=== PATIENT | female | born 1955 | race Caucasian/White ===

== ENCOUNTER 2018-04-14 09:10 | Inpatient (IN) | payer MEDICARE, OTHER ==
[~2018-04-14] VITALS: Ht 152.4 cm; Wt 151.1 kg
[~2018-04-14 09:10] MED LIST: ADVAIR 250-501 EACH INH; ASPIRIN EC325 MG PO; CALMAG THINS T1 EACH PO; CEPHALEXIN500 MG PO; CLARITIN10 MG PO; COUGH DROPS3.1 MG MM; CRANBERRY450 M2 PO; DEMADEX20 MG PO; DERMASEPTIN OI113 GM TOP; DULCOLAX10 MG PR; FLEET ENEMA133 ML PR; GLUCAGON EMERGEN1 MG INJ; GLUCOPHAGE500 MG PO; HYDRALAZINE HCL10 MG PO; IPRAT-ALBUT 0.5-3 ML INH; K-TAB ER20 MEQ PO; LIPITOR20 MG PO; MELATONIN10 M2 PO; MILK OF MA400 MG/5 M PO; MULTI VITAMIN1 EACH PO; NEURONTIN300 MG PO; NORCO 5-325 TA1 EACH PO; RISPERDAL3 MG PO; TRAZODONE HCL100 MG PO; TYLENOL325 MG PO; VITAMIN C500 M4 PO; VOLTAREN100 GM TOP; WELLBUTRIN SR150 MG PO; ZANTAC150 MG PO
--- NOTE | 2018-04-14 13:40 | NUR ---
62 year old female pateint ADMITTED TO CCU FOR ED UNDER DR. PEREZ WITH DX OF END STAGE COPD/CHF/RESP FAILURE. UPON ADMIT PT IS AWARE OF PERSON, PLACE AND TIME. WILL DRIFT OFF TO SLEEP EASILY THEN WAKE. IS ABLE TO ANSWER MOST QUESTIONS. ADMISSION PROCESS STATED.
--- NOTE | 2018-04-14 16:00 | NUR ---
ASSESSMENT DONE. REMIANS ON BIPAP. ABGS TO BE DRAWN. GIOVANNI PATENT YELLOW URINE WIH SEDIMENT.
--- NOTE | 2018-04-14 16:18 | NUR ---
ABG RESULTS, PH-7.37, PCO2-90.6, PO2-71, HCO3-50.9, SAT-94.4
--- NOTE | 2018-04-14 17:00 | NUR ---
ACCUCHECK-103. REMIANS OFF BIPAP. SAT VARIES 84-93. DENIES SHORTNESS OF BREATH.
--- NOTE | 2018-04-14 18:50 | NUR ---
SS ENEMA GIVEN WITH POOR RESULTS. REMIANS ON BEDPAN.
--- NOTE | 2018-04-14 18:53 | NUR ---
TOOK DINNER WELL.
--- NOTE | 2018-04-14 19:43 | NUR ---
dr. krishna updated on patient status and ENEMA RESULTS. THERAPEUTIC STRATEGY LEAD AWARE.
--- NOTE | 2018-04-14 20:24 | NUR ---
PT HAD MED FIRM FORMED STOOL ON BED CAMPOS. JENNA WELL. RESP ARE UNLABORED. PT IS ALERT AND INTERACTIVE.
--- NOTE | 2018-04-14 22:06 | NUR ---
WAS ON BEDPAN, NO BM BUT IS PASSING GAS. HAS BEEN ON BIPAP NOW FOR ABOUT 20MIN. PT TOLD SHE NEEDS TO WEAR IT MUCH POSSABLE TONIGHT.
--- NOTE | 2018-04-14 22:29 | NUR ---
IS SLEEPING SOUNDLY, NOTED SATS DECREASED TO [address] WATCHED PT SLEEP AND TV WILL BE IN 200'S THEN PT WILL TAKE DEEP BREATH AND TV WILL INC TO 500'S AND SATS INC. RT CALLED.
--- NOTE | 2018-04-14 23:28 | NUR ---
AWAKE, STATES CHEST WAS HURTING AND TAKING BIPAP OFF. CHEST DISCOMFORT RESOVLED AFTER BIPAP OFF. FELL BACK TO SLEEP BEFORE STAFF LEFT ROOM. IS OFF BIPAP FOR NOW.
--- NOTE | 2018-04-15 00:35 | NUR ---
RT HERE AND PT PLACED BACK ON BIPAP. PRESSURES ADJUSTED.
--- NOTE | 2018-04-15 01:24 | NUR ---
OFF BIPAP IT WAS TOO NOISY AND CONFINING. BACK ON NC.
--- NOTE | 2018-04-15 02:32 | NUR ---
IS SLEEPING AT THIS TIME. DISCUSSED WITH RT WILL ALLOW TO SLEEP OFF BIPAP FOR UNTIL 0300.
--- NOTE | 2018-04-15 02:48 | NUR ---
STATES NOT SLEEPING AND "I USUALLY TAKE A SLEEPING PILL." EXPLAINED WOULD NOT BE GIVEN ANYTHING TO SLEEP POSSIBLITY OF RESP DEPRESSION. PT VOLUNTERED TO GO BACK ON BIPAP "I MIGHT GO BACK TO SLEEP" BIPAP IN PLACE.
--- NOTE | 2018-04-15 05:23 | NUR ---
OFF BIPAP, REPOSITIONED. PT DOES NOT THING SHE SLEPT. IS ASKING ABOUT BREAKFAST.
--- NOTE | 2018-04-15 05:43 | NUR ---
GIVEN TYLENOL FOR C/O SHOULDER PAIN.
--- NOTE | 2018-04-15 06:36 | NUR ---
ABG'S DRAWN 0615, BACK TO SLEEP.
--- NOTE | 2018-04-15 08:55 | NUR ---
PT SHIFT REPORT RECEIVED FROM BILL CLERK RN. PT RESTING IN BED AT THIS TIME. WILL CONTINUE TO CLOSELY MONITOR.
--- NOTE | 2018-04-15 10:00 | NUR ---
PT ON THE BEDPAN SEVERAL TIMES THIS AM. PT STATES SHE FEELS LIKE SHE HAS TO HAVE A BM, BUT IT WONT COME OUT. MD IS AWARE. WILL TRY AND GET PT UP TO THE [facility]. PT IS UNABLE TO MOVE SO WILL HAVE TO RAMAN PATIENT TO [facility].
--- NOTE | 2018-04-15 12:00 | NUR ---
PT UP TO CHAIR WITH RAMAN AND MULTIPLE STAFF MEMBERS. PT TOELRATED WELL. WILL CONTINUE TO CLOSELY MONITOR. PT BED CHANGED TO BARIATIC BED. LUNCH ORDERED. NO OTHER ISSUES AT THIS TIME. WILL CONTINUE TO CLOSELY MONITOR.
--- NOTE | 2018-04-15 14:00 | NUR ---
PT REPOSITIONED IN THE CHAIR WITH RAMAN LIFT AND MULTIPLE STAFF MEMBERS. PT TOLERATED WELL. WILL CONTINUE TO CLOSELY MONITOR.
--- NOTE | 2018-04-15 15:30 | NUR ---
PT BACK TO BED WITH RAMAN AND MULTIPLE STAFF MEMBERS. ONCE IN BED PT REQUESTING BEDPAN. BED PLAN PLACED. WILL CONTINUE TO CLOSELY MONITOR. PT CALLS APPROPRIATELY.
--- NOTE | 2018-04-15 16:23 | NUR ---
PT HAS HAD MULTIPLE LARGE BMS TODAY. PT IS BACK IN BED AT THIS TIME. PT DENIES ANY NEEDS. CALL LIGHT IN REACH. TV ON. PT IS LOOKING AT THE MENU FOR DINNER. WILL CONTINUE TO CLSOELY MONITOR.
--- NOTE | 2018-04-15 17:30 | NUR ---
REPORT GIVEN TO [facility] MANAV [place]. UPDATED REGUARDING PTS STATUS. PT REMAINS ON 4L NC AT THIS ITME. PT IS ALERT AND ORIENTED AND HAS BEEN UP TO THE CHAIR TODAY AND TOLERATED WELL. TAM IS DRAINING CLEAR YELLOW URINE. PT BREATH SOUNDS ARE CLEAR AND DIMINISHED AT THIS TIME. PT DINNER ORDERED. MEDICATIONS ADMINISTERED. PT DENIES ANY NEEDS BEFORE TRANSFER. MANAV MIDDLETON WILL RESUME CARE. PT IS AGREEABLE TO THIS PLAN OF CARE.
--- NOTE | 2018-04-15 18:00 | NUR ---
ASSESSMENT DONE. MEDICATION GIVEN (SEE MAR). pt DENIES SOB AT THIS TIME. ON 4 L O2 VIA NC. LAYING IN BED WATCHING TV. CALL LIGHT WITHIN REACH.
--- NOTE | 2018-04-15 18:47 | NUR ---
PATIENT IN BED WATCHING TV. VITAL SIGNS AND I&O DONE. CALL LIGHT WITHIN REACH. NO OTHER NEEDS AT THIS TIME
--- NOTE | 2018-04-15 18:48 | NUR ---
pt ARRIVED FROM CCU. ON 4 L VIA NC CHRONICLY. DAILY WEIGHT. BLOOD SUGAR CHECKS ACHS. MULTIPLE LARGE BMS. TAM CATHETER. IV SL. TOLERATING ADA DIET. SLEEP APNEA. HAS NOT USED CALL LIGHT.
--- NOTE | 2018-04-15 19:36 | NUR ---
MEDICATED WITH TYLENOL 650MG PO C/O H/A AND R HIP PAIN. COOPERATIVE WITH ASSESSMENT. O2 4LNC, CHRONIC 2-4L AT HOME. NO C/O SOB, BIPAP AT BEDSIDE AT THIS TIME, PT HAS A NEWLY DX SLEEP APNEA. IN BARIATRIC BED. PT IS A RAMAN LIFT AND DAILY WEIGHT LAST WEIGHT 319#. PT STATES SHE USES BSC. LEGS WITH OLD STASIS ULCERS IN DIFFERENT STAGES OF HEALING. HAS AN IV FIELD START TO BE CHANGED. PT AWARE. TOLERATING FLUIDS AND DIET WELL.
--- NOTE | 2018-04-15 20:38 | NUR ---
ROUNDED CHARGE. ASSISTED HEMANT SULTANA WITH ASSISTING PATIENT OFF OF BED CAMPOS. PATIENT WAS ABLE TO HAVE A BM. COREY CARE COMPLETED. KAYY PROVIDED PT WITH WARM BLANKET. NO FURTHER NEEDS CALL LIGHT IN REACH.
--- NOTE | 2018-04-16 00:52 | EKG ---
[facility] [address] [facility] [place] [address] Signed Normal sinus rhythm Low voltage QRS Borderline ECG When compared with ECG of 24-FEB-2018 20:47, No significant change was found Confirmed by RAINER PEREZ MD ([id number]) on 04/16/2018 12:51:51 AM Electronically Signed By: RAINER PEREZ MD 04/16/18 0052 PATIENT NAME: MOE RICHARDSON Electrocardiogram DATE OF : 57 PHYSICIAN: RAINER PEREZ MD REPORT #: [id number] REPORT IS CONFIDENTIAL AND NOT TO BE RELEASED WITHOUT AUTHORIZATION
--- NOTE | 2018-04-16 01:39 | NUR ---
PATIENT CALLED AND REQUEST TO BE TAKEN OF BIPAP. ENCOURAGED AND EDUCATED PATIENT ON THE IMPORTANCE OF WEARING IT. PATIENT VERBALIZES UNDERSTANDING AND STILL WISHES TO BE TAKEN OFF OF IT. NO FURTHER NEEDS NOTED. CALL LIGHT IN REACH.
--- NOTE | 2018-04-16 03:18 | NUR ---
Resting, O2 in place, eyes closed, no resp distress, no c/o pain, f/c patent
--- NOTE | 2018-04-16 04:00 | NUR ---
awake, fresh ice water given on requests, no c/o pain, on 4L O2 NC, f/c patent
--- NOTE | 2018-04-16 06:19 | NUR ---
PT HAS SLEPT THIS SHIFT. CURRENTLY AWAKE, WATCHING TV. NO C/O PAIN OR SOB. O2 4LNC, USED BIPAP FOR SEVERAL HOURS THIS SHIFT. PT IN BARIATRIC BED. DAILY WEIGHT 333.1#. PT IS A RAMAN LIFT. USED BEDPAN AND HAD A LARGE SOFT BM THIS SHIFT. F/C PATENT. PT HELPS WITH TURNING. NO N/V
--- NOTE | 2018-04-16 06:46 | NUR ---
DI STAFF HERE TO DO A CXR, PROCEDURE EXPLAINED, PT COOPERATIVE
--- NOTE | 2018-04-16 08:13 | NUR ---
REPORT RECEIVED THIS AM FROM CARLOS EM, PATIENT IS SITTING UP IN A BARIATRIC BED WITH RAILS UP AND CALL LIGHT WITHIN REACH, BED IS IN THE LOW POSITION. SHE HAS NO QUESTIONS OR CONCERNS AT THIS TIME AND IS ALERT AND ORIENTED. PATIENT PLACED ON A BED CAMPOS BY TUBE CUTTER'S X2.
--- NOTE | 2018-04-16 11:16 | NUR ---
patient remains at rest in bed with cover over her eyes, blood sugar check at this time 93 no insulin coverage needed.
--- NOTE | 2018-04-16 11:28 | NUR ---
DOCTOR ANA IN TO SEE THE PATIENT AT THIS TIME, PATIENT TAM REMOVED AT THIS TIME, SHE WAS MOVED UP IN BED AND PO K GIVEN NOW.
[2018-04-16] MEDS ORDERED: NORCO 5-325 TA1 EACH PO (11:40)
[2018-04-16] MEDS ORDERED: DEMADEX20 MG PO (11:41)
--- NOTE | 2018-04-16 15:08 | NUR ---
PATIENT TX TO [facility] VIA AMBULANCE AT THIS TIME, REPORT CALLED TO FACILITY
== END 2018-04-16 15:00 | DRG 291 ==
LOC: ED 09:10 → CCU 12:54 → MS 04-15 17:40
PROVIDERS: ADMIT Internal Medicine
DX: I11.0 Hypertensive heart disease with heart failure (principal); J96.22 Acute and chronic respiratory failure with hypercapnia; J96.21 Acute and chronic respiratory failure with hypoxia; I50.33 Acute on chronic diastolic (congestive) heart failure; K59.00 Constipation, unspecified; J44.9 Chronic obstructive pulmonary disease, unspecified; E11.9 Type 2 diabetes mellitus without complications; Z79.4 Long term (current) use of insulin; E78.5 Hyperlipidemia, unspecified; K21.9 Gastro-esophageal reflux disease without esophagitis; F39 Unspecified mood [affective] disorder; Z66 Do not resuscitate; E66.01 Morbid (severe) obesity due to excess calories
CPT/HCPCS: 36415; 36600; 51702; 71045; 80048; 80053; 80069; 81001; 82803; 83735; 83880; 84484; 85025; 85379; 87077; 87088; 87186; 93005; 93010; 93306; 94640; 94660; 96374; 96375; 99285-25; J1120; J1650

== ENCOUNTER 2018-04-26 15:20 | Emergency (ER) | payer MEDICARE, OTHER ==
[~2018-04-26] VITALS: Ht 152.4 cm; Wt 147.9 kg
--- OUTSIDE RECORDS SUMMARY | 2018-04-26 15:24 | XMS ---
PreManage Notification: MOE RICHARDSON Security Store Administrative Assistant Events No recent Security Events currently on file CRITERIA MET - [facility] - 2 Visits in 30 Days CARE PROVIDERS Emily Lo Bioinformatics Technician/Drop Crew Laborer 04/07/2014-Current PHONE: [phone] Emily Lo Primary Care 04/07/2014-Current PHONE: [phone] Evelyn has no Care Guidelines for this patient. [place] VISIT COUNT (12 MO.) [address] [place] [address] TOTAL 3 NOTE: Visits indicate total known visits. ED/UCC VISIT TRACKING (12 MO.) 04/26/2018 15:20 [facility] TYPE: Emergency COMPLAINT: - CHEST PAIN 04/14/2018 09:11 [facility] TYPE: Emergency COMPLAINT: - WEAKNESS/DIZZY 02/24/2018 20:02 [facility] TYPE: Emergency COMPLAINT: - SHORTNESS OF BREATH INPATIENT VISIT TRACKING (12 MO.) 04/14/2018 12:54 [facility] TYPE: Medical Surgical COMPLAINT: - RESPIRATORY FAILURE DIAGNOSES: - Unspecified mood [affective] disorder - MCFP (current) use of insulin - Gastro-esophageal reflux disease without esophagitis - Do not resuscitate - Morbid (severe) obesity due to excess calories - Type 2 diabetes mellitus without complications - Hypertensive heart disease with heart failure - Acute on chronic diastolic (congestive) heart failure - Constipation, unspecified - terminal operations supervisor (current) use of insulin - Chronic obstructive pulmonary disease, unspecified - Gastro-esophageal reflux disease without esophagitis - Constipation, unspecified - Do not resuscitate - Acute and chronic respiratory failure with hypercapnia - Acute on chronic diastolic (congestive) heart failure - Morbid (severe) obesity due to excess calories - Chronic obstructive pulmonary disease, unspecified - Unspecified mood [affective] disorder - Acute and chronic respiratory failure with hypercapnia - Acute and chronic respiratory failure with hypoxia - Type 2 diabetes mellitus without complications - Hyperlipidemia, unspecified - Hyperlipidemia, unspecified - Hypertensive heart disease with heart failure 02/24/2018 22:23 [facility] TYPE: Medical Surgical COMPLAINT: - CONGESTIVE HEART FAILURE DIAGNOSES: - MCFP (current) use of oral hypoglycemic drugs - Pneumonia due to Streptococcus pneumoniae - Acute and chronic respiratory failure with hypercapnia - Unspecified mood [affective] disorder - terminal operations supervisor (current) use of oral hypoglycemic drugs - Hypertensive heart disease with heart failure - Acute and chronic respiratory failure with hypoxia - Unspecified Escherichia coli [E. coli] as the cause of diseases classified elsewhere - Hypertensive heart disease with heart failure - Chronic obstructive pulmonary disease with acute lower respiratory infection - Acute and chronic respiratory failure with hypercapnia - Unspecified mood [affective] disorder - Do not resuscitate - Pneumonia due to Streptococcus pneumoniae - Unspecified Escherichia coli [E. coli] as the cause of diseases classified elsewhere - Urinary tract infection, site not specified - Obstructive sleep apnea (adult) (pediatric) - Obstructive sleep apnea (adult) (pediatric) - Gastro-esophageal reflux disease without esophagitis - Urinary tract infection, site not specified - Gastro-esophageal reflux disease without esophagitis - Acute and chronic respiratory failure with hypoxia - Dependence on supplemental oxygen - Do not resuscitate - Acute on chronic diastolic (congestive) heart failure - Chronic obstructive pulmonary disease with acute lower respiratory infection - Hyperlipidemia, unspecified - Type 2 diabetes mellitus without complications - terminal operations supervisor (current) use of insulin - Chronic obstructive pulmonary disease, unspecified - Dependence on supplemental oxygen - Hyperlipidemia, unspecified - Type 2 diabetes mellitus without complications [email or web address]
[2018-04-26] MEDS ORDERED: MACROBID 100 M100 MG PO (17:25)
[2018-04-26] MEDS ORDERED: VITAMIN C500 M1 PO (17:26)
[2018-04-26] MEDS ORDERED: ADVAIR 250-501 EACH INH (17:27)
--- NOTE | 2018-04-27 12:17 | EKG ---
[facility] [address] [facility] [place] [address] Signed Normal sinus rhythm with sinus arrhythmia Low voltage QRS Borderline ECG When compared with ECG of 14-APR-2018 09:30, No significant change was found Confirmed by BHANU LO DO ([id number]) on 04/27/2018 12:17:03 PM Electronically Signed By: BHANU LO DO 04/27/18 1217 PATIENT NAME: MOE RICHARDSON Electrocardiogram DATE OF : 57 PHYSICIAN: BHANU LO DO REPORT #: [id number] REPORT IS CONFIDENTIAL AND NOT TO BE RELEASED WITHOUT AUTHORIZATION
--- NOTE | 2018-04-27 12:17 | EKG ---
[facility] [address] [facility] [place], [place] [address] Signed Normal sinus rhythm Low voltage QRS Borderline ECG When compared with ECG of 26-APR-2018 15:26, (Unconfirmed) No significant change was found Confirmed by BHANU LO DO ([id number]) on 04/27/2018 12:17:09 PM Electronically Signed By: BHANU LO DO 04/27/18 1217 PATIENT NAME: MOE RICHARDSON Electrocardiogram DATE OF : 57 PHYSICIAN: BHANU LO DO REPORT #: [id number] REPORT IS CONFIDENTIAL AND NOT TO BE RELEASED WITHOUT AUTHORIZATION
== END 2018-04-26 19:40 | disposition home or self-care (01) ==
LOC: ED 15:20
DX: R07.2 Precordial pain (principal); J44.9 Chronic obstructive pulmonary disease, unspecified; E78.5 Hyperlipidemia, unspecified; F32.9 Major depressive disorder, single episode, unspecified; Z87.891 Personal history of nicotine dependence; Z88.2 Allergy status to sulfonamides; Z91.048 Other nonmedicinal substance allergy status; Z88.1 Allergy status to other antibiotic agents; Z88.5 Allergy status to narcotic agent; Z79.899 Other long term (current) drug therapy
CPT/HCPCS: 71045; 71260; 80053; 84484; 85025; 85379; 93005; 93010; 99285-25; Q9967

== ENCOUNTER 2018-05-03 12:48 | Observation (INO) | payer MEDICARE, OTHER ==
[~2018-05-03] VITALS: Ht 152.4 cm; Wt 153.3 kg
[~2018-05-03 12:48] MED LIST changes: +MACROBID 100 M100 MG PO; +VITAMIN C500 M1 PO
--- OUTSIDE RECORDS SUMMARY | 2018-05-03 12:50 | XMS ---
PreManage Notification: MOE RICHARDSON Security Fiscal Clerk Events No recent Security Events currently on file CRITERIA MET - [facility] - 2 Visits in 30 Days CARE PROVIDERS Emily Lo Staff Nurse Anesthetist/Chief Clerk 04/07/2014-Current PHONE: [phone] TINA SMITH [facility] Medicine: Sports Medicine 04/27/2018-Current PHONE: Unknown Emily Lo Primary Care 04/07/2014-Current PHONE: [phone] Evelyn has no Care Guidelines for this patient. E.D. VISIT COUNT (12 MO.) 4 [facility] TOTAL 4 NOTE: Visits indicate total known visits. ED/UCC VISIT TRACKING (12 MO.) 05/03/2018 12:48 [facility] TYPE: Emergency COMPLAINT: - CHEST PAIN 04/26/2018 15:20 [facility] TYPE: Emergency COMPLAINT: - CHEST PAIN DIAGNOSES: - Chronic obstructive pulmonary disease, unspecified - Allergy status to narcotic agent status - Other nonmedicinal substance allergy status - Hyperlipidemia, unspecified - Other mcfp (current) drug therapy - Allergy status to other antibiotic agents status - Precordial pain - Allergy status to sulfonamides status - Major depressive disorder, single episode, unspecified - Personal history of nicotine dependence 04/14/2018 09:11 [facility] TYPE: Emergency COMPLAINT: - WEAKNESS/DIZZY 02/24/2018 20:02 [facility] TYPE: Emergency COMPLAINT: - SHORTNESS OF BREATH INPATIENT VISIT TRACKING (12 MO.) 04/14/2018 12:54 [facility] TYPE: Medical Surgical COMPLAINT: - RESPIRATORY FAILURE DIAGNOSES: - Unspecified mood [affective] disorder - FCI (current) use of insulin - Gastro-esophageal reflux disease without esophagitis - Do not resuscitate - Morbid (severe) obesity due to excess calories - Type 2 diabetes mellitus without complications - Hypertensive heart disease with heart failure - Acute on chronic diastolic (congestive) heart failure - Constipation, unspecified - lion trainer (current) use of insulin - Chronic obstructive [...] disease with heart failure 02/24/2018 22:[address] [facility] [place] TYPE: Medical Surgical COMPLAINT: - CONGESTIVE HEART FAILURE DIAGNOSES: - lion trainer (current) use of oral hypoglycemic drugs - Pneumonia due to Streptococcus pneumoniae - Acute and chronic respiratory failure with hypercapnia - Unspecified mood [affective] disorder - FCI (current) use of oral hypoglycemic drugs - [...] Type 2 diabetes mellitus without complications - lion trainer (current) use of insulin - Chronic obstructive pulmonary disease, unspecified - Dependence on supplemental oxygen - Hyperlipidemia, unspecified - Type 2 diabetes mellitus without complications [email or web address]
--- NOTE | 2018-05-03 16:05 | NUR ---
PT TO THE CCU FROM ER, RESP THERAPY WITH PT TRANSPORT TO ASSIST WITH BIPAP. PT IS TOTAL LIFT FROM GURNEY TO BED, USED OVERHEAD LIFT WITH PT'S OWN SLING FROM HOME, 3 PERSON ASSIST TO TRANSFER. PT DROWSY.
--- NOTE | 2018-05-03 16:35 | NUR ---
PT OFF BIPAP AT THIS TIME PER HER REQUEST, PT PLACED ON 7L VIA OXYMASK, O2 SATS REMAIN 89-92%.
--- NOTE | 2018-05-03 17:15 | NUR ---
TAM CATH PLACED AFTER EXTENSIVE COREY CARE DONE. PT ARRIVED TO THE CCU INCONTINENT OF LARGE AMOUNT OF URINE, SMEAR OF STOOL. NOTED SMALL AMOUNT OF WHITE VAGINAL DISCHARGE. [address] TAM DUE TO PT OBESITY.
--- NOTE | 2018-05-03 18:07 | NUR ---
BIPAP BACK IN PLACE PER PT REQUEST. PT ALERT AND ORIENTED X4 AT THIS TIME. PT LAYING IN BED WITH HOB ELEVATED LISTENING TO MUSIC. PT APPEARS CALM, CALL LIGHT WITHIN REACH, PT ABLE TO USE CALL LIGHT APPRORIATLY.
--- NOTE | 2018-05-03 20:17 | NUR ---
PT RESTING IN BED, AOX4, PT COMMUNICATING WITH STAFF, ON BIPAP, O2 SAT 90%, FIO2: 50%, RR 19, HR 70'S VSS. ASSESSMENT COMPLETE, LS CLEAR/DIMINISHED, PT DENIES SOB/CP. PULSES STRONG, REDDENED SCALY AREA NOTED ON PT'S RIGHT KIM, PT STATES THAT SHE HAS SOME CHRONIC NUMBNESS IN LEFT FOOT, CMS OTHERWISE INTACT. PT REPOSITIONED IN BED FOR COMFORT. CBG 78, DISCUSSED WITH MANAV RAY, MANAV RAY TO DISCUSS WITH MD. WILL CONTINUE TO MONITOR. CALL LIGHT WITHIN REACH. FALL PRECAUTIONS IN PLACE. TAM CATH DRAINING WNL.
--- NOTE | 2018-05-03 20:30 | NUR ---
PT AWAKE, RESTING IN BED, AOX4, PT REQUESTING TO BE OFF OF BIPAP BREIFLY, PT ON OXY MASK AT 8L, O2 SAT 90%, RR 19, NO C/O SOB/CP. NO REQUESTS AT THIS TIME, CALL LIGHT WITHIN REACH.
--- NOTE | 2018-05-03 20:42 | NUR ---
PT BACK ON BIPAP, D5 LR STARTED AT 75ML/HR, PT AWAKE, RESTING IN BED, AOX4, O2 SAT 89%, RR, 21, FIO2 50%, NO C/O SOB/CP. NO REQUESTS AT THIS TIME. CALL LIGHT WITHIN REACH.
--- NOTE | 2018-05-03 21:19 | NUR ---
PT RESTING IN BED, EYES CLOSED, BREATHS EVEN, UNLABORED, ON BIPAP, FIO2: 50%, O2 SAT 89%, RR 18, HR 69, NO SIGNS OF DISCOMFORT OR RESTLESNESS, IV FLUIDS INFUSING PER EMAR WNL, TAM CATH DRAINING WNL. NO REQUESTS AT THIS TIME, CALL LIGHT WIHIN REACH, FALL PRECAUTIONS IN PLACE, PT'S BELONGINGS AT BEDSIDE.
--- NOTE | 2018-05-03 22:17 | NUR ---
PT RESTING IN BED, EYES CLOSED, BREATHS EVEN, UNLABORED, ON BIPAP, FIO2: 50%, O2 SAT 90%, RR 16, HR 71, NO REQUESTS AT THIS TIME, NO SIGNS OF DISCOMFORT OR RESTLESNESS, IV FLUIDS INFUSING PER EMAR WNL, TAM CATH DRAINING WNL, CALL LIGHT WITHIN REACH.
--- NOTE | 2018-05-03 22:44 | NUR ---
PT AWAKE, AOX4, RESTING IN BED, PT STATES THAT SHE WOULD LIKE TO BE OFF OF BIPAP FOR A BRIEF PERIOD. PT ON OXY MASK AT 8L, O2 SAT 90%, RR 20, NO C/O SOB, HR 72, NO REQUESTS AT THIS TIME, CALL LIGHT WITHIN REACH. IV FLUIDS INFUSING PER EMAR WNL, PT REPOSITIONED FOR COMFORT, TAM CATH DRAINING WNL.
--- NOTE | 2018-05-04 | NUR ---
PT AWAKE, RT IN ROOM, PT'S MOUTH SWABBED PER PT'S REQUEST, PT TAKING A BREAK FROM BIPAP WHILE RT IN ROOM ADMINISTERING NEB TREATMENT. PT ON OXY MASK AT 8L, O2 SAT 90%, RR 20, NO REQUESTS AT THIS TIME, RT REMAINS IN ROOM, CALL LIGHT WITHIN REACH.
--- NOTE | 2018-05-04 00:20 | NUR ---
PT PLACED BACK ON BIPAP, FIO2: 50%, O2 SAT 90%, HR 72, NO REQUESTS AT THIS TIME, CALL LIGHT WITHIN REACH. IV FLUIDS INFUSING PER EMAR WNL.
--- NOTE | 2018-05-04 00:55 | NUR ---
ASSESSMENT COMPLETE, PT RESTING IN BED, AOX4, ON BIPAP, FIO2: 50%, O2 SAT 89%, RR 18, NO C/O SOB, NO C/O PAIN. PT REPOSITIONED IN BED FOR COMFORT. TAM CARE DONE, WHITE VAGINAL DISCHARGE NOTED, PT'S ATTENDS DRY. TAM CATH DRAINING WNL. PT DENIES ANY NEEDS AT THIS TIME. PT MORE ALERT THAN PREVIOUS, FREQUENTLY TALKING WITH STAFF, EDUCATION PROVIDED REGARDING O2 THERAPY AND MEDICATIONS, WELL SAFETY. PT COMPLIANT WITH POC. NO REQUESTS AT THIS TIME, CALL LIGHT WITHIN REACH. FALL PRECAUTIONS IN PLACE.
--- NOTE | 2018-05-04 02:00 | NUR ---
PT RESTING IN BED, ON BIPAP, FIO2 50%, O2 SAT 90%, RR 19, HR 69, NO REQUESTS AT THIS TIME, CALL LIGHT WITHIN REACH. IV FLUIDS INFUSING PER EMAR WNL. TAM CATH DRAINING WNL.
--- NOTE | 2018-05-04 03:11 | NUR ---
PT RESTING IN BED, ON BIPAP, FIO2 50%, O2 SAT 90%, NO REQUESTS AT THIS TIME, CALL LIGHT WITHIN REACH. IV FLUIDS INFUSING PER EMAR.
--- NOTE | 2018-05-04 03:40 | NUR ---
PT AWAKE, TAKING A BREAK FROM THE BIPAP, ON OXY MASK AT 10 L, O2 SAT 88%, RR 20, PT GIVEN ORAL SWAB FOR COMFORT, NO C/O SOB/CP, NO C/O PAIN, NO REQUESTS AT THIS TIME, CALL LIGHT WITHIN REACH.
--- NOTE | 2018-05-04 07:45 | NUR ---
PT IS AWAKE BUT DROWSY LAYING IN BED ON BIPAP AT THIS TIME. PT DENIES ANY PAIN AND STATES THAT SHE'S COMFORTABLE. PT ASKING ABOUT BREAKFAST AND I WILL FOLLOW UP ON THIS WITH DR. BRANTLEY. CALL LIGHT WITHIN REACH. NO CHANGE IN BIPAP SETTINGS. FALL PRECAUTIONS IN PLACE. WILL CONTINUE TO MONITOR.
--- NOTE | 2018-05-04 07:55 | EKG ---
[facility] [address] [facility] [place] [address] Signed Normal sinus rhythm Low voltage QRS Borderline ECG When compared with ECG of 26-APR-2018 16:27, No significant change was found Confirmed by PURVI BRANTLEY MD ([id number]) on 05/04/2018 7:55:02 AM Electronically Signed By: PURVI BRANTLEY MD 05/04/18 0755 PATIENT NAME: MOE RICHARDSON Electrocardiogram DATE OF : 57 PHYSICIAN: PURVI BRANTLEY MD REPORT #: [id number] REPORT IS CONFIDENTIAL AND NOT TO BE RELEASED WITHOUT AUTHORIZATION
--- NOTE | 2018-05-04 08:45 | NUR ---
ASSESSMENT COMPLETED. PT WIDE AWAKE, ORIENTED X4. 10 L/MIN OF O2 VIA OXYMASK IN PLACE. PT REQUIRES FREQUENT EDUCATION ON BIPAP/ GENERAL RESPIRATORY CARE. PT NEEDS REINFORCEMENT ON ALL EDUCATION, NOT GRASPING THE SEVERITY OF HER NEED FOR BIPAP MCFP. LUNGS CLEAR/DIM. TAM IN PLACE AND WNL; DRAINING ADEQUATE URINE. PT STATES SHE HAS NO PAIN, NO N/V. AWAITING PT BREAKFAST. DENIES ALL OTHER NEEDS AT THIS TIME. CALL LIGHT WITHIN REACH. FALL PRECAUTIONS IN PLACE. WILL CONTINUE TO MONITOR.
--- NOTE | 2018-05-04 09:30 | NUR ---
PT PLACED ON 6 L/MIN O2 VIA NC WHILE EATING BREAKFAST- SATURATIONS DROPPED TO MID 70'S; REINFORCEMENT ON DEEP BREATHING WHILE EATING/EATING SLOWLY TO NOT WORK UP HER EXERTION. 10 L/MIN O2 VIA OXYMASK AFTER BREAKFAST WHILE VISITING WITH HER COUSIN AT THE BEDSIDE. PT DENIES ANY NEEDS TO BE MET; JUST REQUESTS TO BE KEPT UP TO DATE ON PLAN OF CARE. CALL LIGHT WITHIN REACH. FALL PRECAUTIONS IN PLACE. WILL CONTINUE TO MONITOR.
--- NOTE | 2018-05-04 10:00 | NUR ---
PT PLACED BACK ON BIPAP AND IS RESTING IN BED. NO QUESTIONS OR CONCERNS AT THIS TIME. PT IS MAINTAINING 89-90% O2 SAT WITH BIPAP IN PLACE. NO QUESTIONS OR CONCERNS. CALL LIGHT WITHIN REACH. WILL CONTINUE TO MONITOR.
--- NOTE | 2018-05-04 10:30 | NUR ---
PLAN AT THIS TIME IS FOR THE PT TO BE DC FROM HOSPITAL AT BETWEEN 1900 AND 1930 AND TO GO TO THE SLEEP LAB FROM THERE SHE WAS SCHEDULED FOR SLEEP STUDY PRIOR TO OBS ADMIT TO THE HOSPITAL. SHE IS TO HAVE HER STUDY AND THEN RETURN TO [facility] IN THE AM. [facility] WILL PICK HER UP IN THE AM.
--- NOTE | 2018-05-04 12:00 | NUR ---
ASSESSMENT COMPLETED. PT STILL DENIES PAIN. NO N/V. SWITCHING TO AND FROM OXYMASK AND BIPAP NEEDED. TAM DRAINING ADEQUATE URINE. NO REQUESTS, QUESTIONS OR CONCERNS AT THIS TIME. CALL LIGHT WITHIN REACH. FALL PRECAUTIONS IN PLACE. WILL CONTINUE TO MONITOR.
--- NOTE | 2018-05-04 13:00 | NUR ---
PT RESTING; NO CONCERNS OR PAIN. NO CHANGE IN RESPIRATORY STATUS. CALL LIGHT WITHIN REACH. FALL PRECAUTIONS IN PLACE. WILL CONTINUE TO MONITOR.
--- NOTE | 2018-05-04 14:18 | NUR ---
PT RESTING IN BED ON 10 L/MIN O2 VIA OXYMASK. PT REMAINS PLEASANT AND CALM WITH NO QUESTIONS, CONCERNS OR COMPLAINTS. PT HAS BEEN UPDATED ON PLAN OF CARE AND IS AWARE OF HER TRANSFER FOR SLEEP STUDY THIS EVENING. TAM IN PLACE AND WNL. CALL LIGHT WITHIN REACH. FALL PRECAUTIONS IN PLACE. WILL CONTINUE TO MONITOR.
--- NOTE | 2018-05-04 16:25 | NUR ---
ASSESSMENT COMPLETED. NO CHANGE TO ASSESSMENT. PT ON 10 L/MIN O2 VIA OXYMASK. NO C/O PAIN. CALL LIGHT WITHIN REACH. WILL CONTINUE TO MONITOR.
--- NOTE | 2018-05-04 17:10 | NUR ---
[facility]ARMS STARTED GOING OFF FOR PT, ALARMING VERY LOW O2 SATS- THIS RN ENTERED ROOM TO SEE PT EATING HER DINNER ON ROOM AIR. EDUCATION GIVEN ON IMPORTANCE OF PT NOT REMOVING HER OXYGEN SUPPLY TO EAT HER FOOD- THAT SHE MUST CALL FOR ASSISTANCE TO SWITCH TO O2 VIA NC BEFORE SHE CAN EAT. SHE STATES HER UNDERSTANDING BUT SHE REQUIRES MUCH REINFORCEMENT. HAD PT STOP EATING, DEEP BREATHE IN THROUGH NOSE OUT THROUGH MOUTH WITH O2 ON; O2 SATS STABILIZED AND SHE IS NOW WORKING ON DINNER. CALL LIGHT WITHIN REACH. FALL PRECAUTIONS IN PLACE. WILL CONTINUE TO MONITOR.
--- NOTE | 2018-05-04 18:57 | NUR ---
THIS RN CALLED AND GAVE TELEPHONE REPORT TO RECEIVING RN KLEBER AT [facility] WHO WILL BE TAKING PT IN THE MORNING WHEN SHE ARRIVES FROM HER OVERNIGHT SLEEP STUDY. KLEBER IS AWARE OF PLAN OF CARE, INCLUDING REMOVAL OF TAM IN THE MORNING UPON HER ARRIVAL TO [facility].
== END 2018-05-04 19:25 ==
LOC: ED 12:48 → CCU 12:49
PROVIDERS: ADMIT Internal Medicine
DX: J96.21 Acute and chronic respiratory failure with hypoxia (principal); J96.22 Acute and chronic respiratory failure with hypercapnia; I11.0 Hypertensive heart disease with heart failure; I50.32 Chronic diastolic (congestive) heart failure; Z87.440 Personal history of urinary (tract) infections; E11.51 Type 2 diabetes mellitus with diabetic peripheral angiopathy without gangrene; R60.1 Generalized edema; M19.011 Primary osteoarthritis, right shoulder; F25.9 Schizoaffective disorder, unspecified; F41.8 Other specified anxiety disorders; F43.10 Post-traumatic stress disorder, unspecified; F51.04 Psychophysiologic insomnia; E78.5 Hyperlipidemia, unspecified; E66.2 Morbid (severe) obesity with alveolar hypoventilation; J44.9 Chronic obstructive pulmonary disease, unspecified; K21.9 Gastro-esophageal reflux disease without esophagitis; G89.4 Chronic pain syndrome; J30.9 Allergic rhinitis, unspecified; Z68.44 Body mass index [BMI] 60.0-69.9, adult; Z66 Do not resuscitate; Z88.1 Allergy status to other antibiotic agents; Z88.3 Allergy status to other anti-infective agents; Z88.5 Allergy status to narcotic agent; Z88.2 Allergy status to sulfonamides; Z79.2 Long term (current) use of antibiotics; Z79.84 Long term (current) use of oral hypoglycemic drugs; Z79.1 Long term (current) use of non-steroidal anti-inflammatories (NSAID); Z79.82 Long term (current) use of aspirin; Z79.891 Long term (current) use of opiate analgesic; Z79.51 Long term (current) use of inhaled steroids; Z79.899 Other long term (current) drug therapy
CPT/HCPCS: 36415; 36600; 71045; 80048; 80053; 81001; 82803; 83735; 83880; 84484; 85025; 87077; 87088; 87186; 93005; 93010; 94640; 94660; 96365; 96366; 96372; 96375; 99285-25; C9113; G0378; J1650; J1956; J2405; J7120

== ENCOUNTER 2018-05-04 20:30 | Observation (INO) | payer MEDICARE, OTHER ==
[~2018-05-04] VITALS: Ht 152.4 cm; Wt 149.8 kg
--- NOTE | 2018-05-04 20:57 | NUR ---
pt ARRIVED VIA WHEELCHAIR FROM SLEEP STUDY. RAMAN TO BED. ON 8 L O2 VIA NC. CPAP SETUP AND AT BEDSIDE. ASSESSMENT DONE. PERICARE PROVIDED. MEDICATIONS GIVEN (SEE MAR). FLUID RESTRICTION EDUCATION DONE. CALL LIGHT WITHIN REACH. NO FURTHER REQUESTS AT THIS TIME.
--- NOTE | 2018-05-04 22:12 | NUR ---
RT UNAVAILABLE. NEB TX DONE. CPAP IN PLACE. WILL HAVE RT EVALUATE WHEN AVAILABLE. CALL LIGHT WITHIN REACH.
--- NOTE | 2018-05-05 00:16 | NUR ---
ROUNDED ON pt. RESTING WITH EYES CLOSED, RESP REGULAR, RATE = 20. CPAP ON. CALL LIGHT WITHIN REACH.
--- NOTE | 2018-05-05 01:04 | NUR ---
CALL LIGHT ON. pt REPORTED FEELING WARM. ADJUSTED BLANKETS AND THERMOSTAT. REPOSITIONED CPAP. PROVIDED COOL CLOTH. CALL LIGHT WITH REACH. NO FURTHER REQUESTS AT THIS TIME.
--- NOTE | 2018-05-05 01:21 | NUR ---
CALL LIGHT ON. REQUESTED TO CHANGE FROM CPAP TO OXY MASK. MASK APPLIED, 8L O2. CALL LIGHT WITHIN REACH. NO FURTHER REQUESTS AT THIS TIME.
--- NOTE | 2018-05-05 02:08 | NUR ---
FIRE ALARM OPERATOR IN ROOM TO DO VITAL SIGNS. pt RESTING WITH CPAP ON. REPORTED 4/10 PAIN IN SAME AREA EARLIER, ENCOURAGED REST AND RELAXATION. TOLERATING FLUID RESTRICTION. ASSESSMENT DONE. RT CHECKED CPAP EQUIPMENT AND MASK FIT. NO OTHER REQUESTS AT THIS TIME. CALL LIGHT WITHIN REACH.
--- NOTE | 2018-05-05 04:19 | NUR ---
CPOX ALARMING, CPAP ALARMING. pt REMOVED CPAP. REQUESTED OXY MASK. O2 SAT 88%. CALL LIGHT WITHIN REACH. NO REQUESTS AT THIS TIME.
--- NOTE | 2018-05-05 04:25 | NUR ---
CPOX ALARMING. 84% ON 8L VIA OXY MASK WHILE SLEEPING. INCREASED O2 TO 12 L VIA OXY MASK. SATING >87%. WILL CONTINUE TO MONITOR. pt REFUSED CPAP AT THIS TIME.
--- NOTE | 2018-05-05 05:26 | NUR ---
pt RESTED ON AND OFF DURING SHIFT. pt ON 8L O2 VIA OXY MASK WHILE AWAKE. CPAP WHILE SLEEPING. WHEN OFF CPAP TITRATED TO 12L OXY MASK. RAMAN LIFT. WHEELCHAIR BOUND. IV SL. ADA DIET. FLUID RESTRICTION, C/O BEING THIRSTY. CPOX. ACCUCHECKS. TELE 5, SR. YONATAN, LOW URINE OUTPUT PER PARAMETERS. USES CALL LIGHT APPROPRIATELY.
--- NOTE | 2018-05-05 06:50 | NUR ---
MEDICATION GIVEN (SEE MAR). pt ON 12L O2 OXYMASK SAT OF 89%. CALLED RT WHO REQUESTED THAT O2 BE TITRATED TO 8L. DONE. SAT 89%. WILL CONTINUE TO MONITOR AND TITRATE ACCORDINGLY.
--- NOTE | 2018-05-05 07:42 | NUR ---
REPORT RECEIVED FROM [facility]MA EM, PATIENT IS ON A OXYMASK CURRENTLY AT 8L, SHE HAS NO C/O SOB AT THIS TIME. BED IS IN THE LOW POSITION AND THE SIDE RAILS ARE UP. SHE DID NOT USE THE CPAP MACHINE LAST NIGHT SHE DID NOT TOLERATE THE MASK. PATIENT IS ORIENTED AND ALERT AT THIS TIME.
--- NOTE | 2018-05-05 10:14 | NUR ---
PATIENT COREY/TAM CARE DONE AT THIS TIME, SHE WAS INCONTENT OF URINE, CHUX CHANGED AND I AND O DONE.
--- NOTE | 2018-05-05 12:34 | NUR ---
PATIENT GIVEN SCHEDULED MEDICATION AT THIS TIME, SHE STATES THAT SHE FEELS BETTER AT THIS TIME. SHE ATE 100% OF HER LUNCH AND DENIES OTHER NEEDS AT THIS TIME
--- NOTE | 2018-05-05 13:21 | NUR ---
PT SOUND ASLEEP, DID NOT WANT TO DISTURB HER. WILL CONTINUE TO FOLLOW NEEDED
--- NOTE | 2018-05-05 15:30 | NUR ---
PATIENT ACCIDENTLY PULLED HER IV OUT IN THE LEFT HAND TIP INTACT NEW IV IN THE RIGHT HAND STARTED AT THIS TIME #20 GUAGE.
--- NOTE | 2018-05-05 17:30 | NUR ---
HAVING BEEN TALKING TO [facility] AND [facility] TO GET THE PT SET UP FOR BIPAP AT [facility]. ORDERS WERE SENT TO IN [facility] AND TO [facility] FOR THE BIPAP. [facility] WAS SENDING SOMEONE UP TO FIT A MASK TO THE PT. HOWEVER THEY STATED THAT THIS AFTERNOON THEY WERE TO BUSY TO COME AND FIT PT FOR THE MASK, THEREFORE THEY WOULD BE UP TOMORROW TO FIT THE MASK AND TAKE IT TO [facility].
--- NOTE | 2018-05-05 19:07 | NUR ---
IN ROOM FOR REPORT, PT IS AWAKE IN BED. SHE DENIES NEEDS AT THIS TIME. CALL LIGHT IS WITHIN REACH.
--- NOTE | 2018-05-05 20:53 | NUR ---
IN ROOM TO ASSESS PT AND ADMINISTER MEDICATIONS. PT DENIES PAIN AT THIS TIME. RT PUT HER ON BIPAP. LUNGS SOUND DIM. BS 104 AND NO INSULIN REQUIRED. CALL LIGHT IS CLOSE, SHE DENIES NEEDS.
--- NOTE | 2018-05-05 21:35 | NUR ---
PT CALLED SAYING SHE HAS PAIN ON HER LEFT SIDE, PLACE PILLOW UNDER SIDE AND PT STATES SHE FEELS BETTER. SHE DENIES FURTHER NEEDS, CALL LIGHT IS CLOSE.
--- NOTE | 2018-05-05 22:26 | NUR ---
REPOSITIONED PT AND REMOVED TAM, PT FELT LIKE SOMETHING WAS UNDER HER. ATTENDS ARE IN PLACE NOW. PT ON BIPAP AND DENIES FURTHER NEEDS. CALL LIGHT IS CLOSE.
--- NOTE | 2018-05-06 | NUR ---
PT IS RESTING WITH EYES CLOSED, RESPIRATIONS ARE EVEN AND NONLABORED. CALL LIGHT IS WITHIN REACH. BIPAP AND CPOX INPLACE.
--- NOTE | 2018-05-06 01:41 | NUR ---
PT IS RESTING WITH EYES CLOSED, RESPIRATIONS ARE EVEN AND NONLABORED ON CPOX. CALL LIGHT IS CLOSE.
--- NOTE | 2018-05-06 03:17 | NUR ---
PT IS RESTING WITH EYES CLOSED, RR EVEN AND NONLABORED ON BIPAP AND CPOX AT 92%. CALL LIGHT IS CLOSE.
--- NOTE | 2018-05-06 05:00 | NUR ---
PT IS RESTING WITH EYES CLOSED, RR IS EVEN AND NONLABORED ON BIPAP AND CPOX. CALL LIGHT IS CLOSE.
--- NOTE | 2018-05-06 06:00 | NUR ---
CHANGED PT'S ATTENDS, SHE DENIES FURTHER NEEDS AT THIS TIME. SHE IS ON 9L HIGH FLOW NC. CALL LIGHT IS CLOSE.
--- NOTE | 2018-05-06 06:08 | NUR ---
PT HAD BIPAP ON MOST OF THE NIGHT FROM ABOUT 10PM TO 6AM. CPOX IS IN PLACE AND SHE IS ON 9L HIGH FLOW NC. YONATAN WAS DC'D LAST NIGHT AND SHE HAS ATTENDS IN PLACE. SHE IS ON ADA DIET WITH 1600ML FLUID RESTRICTION. IV IN RT HAND IS SL. SHE IS ON TELE # 5 IN NSR. DAILY WEIGHT IS 330.2 DOWN FROM 331.9. SHE MAY DC TODAY WITH CPAP.
--- NOTE | 2018-05-06 07:20 | NUR ---
PATIENT REPORT RECEIVED FROM SARAH EM. PATIENT SITTING UP IN BED ALERT AND ORIENTED. BED IS IN THE LOW POSITION WITH RAILS UP. SHE HAS NO QUESTIONS OR CONCERNS AT THIS TIME.
--- NOTE | 2018-05-06 07:30 | NUR ---
PT IS IN BED, EYES CLOSED, RESPIRATIONS ARE EVEN AND UNLABORED. CALL LIGHT WITHIN REACH.
--- NOTE | 2018-05-06 07:56 | NUR ---
PATIENT SITTING UP IN BED EATING HER BREAKFAST. SHE HAS NO C/O SOB CURRENTLY AND REMAINS ON A HIGH FLOW NC AT 9L, O2 SATURATIONS CURRENTLY 90%. PULSE OX REMAINS ON.
--- NOTE | 2018-05-06 08:00 | NUR ---
PT IS OFF BIPAP AND IS NOW ON 9L HIGH FLOW NC, SATS ARE 89%, RESPIRATIONS ARE EVEN AND UNLABORED. PT IS ALERT AND RESPONDS APPROPRIATELY TO QUESTIONS . CALL LIGHT WITHIN REACH.
--- NOTE | 2018-05-06 08:30 | NUR ---
PT IS IN BED, EATING BREAKFAST INDEPENDANTLY, CALL LIGHT WITHIN REACH, NO OTHER NEEDS AT THIS TIME.
--- NOTE | 2018-05-06 08:45 | NUR ---
MEDICATIONS GIVEN, PT WAS ABLE TO TAKE MEDICATIONS INDEPENDANTLY WITH NO COMPLICATIONS. CALL LIGHT WITHIN REACH, PT HAS NO OTHER NEEDS AT THIS TIME.
--- NOTE | 2018-05-06 09:30 | NUR ---
PT IN BED APPEARS TO BE RESTING COMFORTABLEY, EYES CLOSED RESPIRATIONS ARE EVEN AND UNLABORED WITH NO FACIAL GRIMACING. CALL LIGHT WITHIN REACH.
--- NOTE | 2018-05-06 10:30 | NUR ---
PT IS IN BED VISTING WITH TANIA. PT HAS NO COMPLAINTS AT THIS TIME. CALL LIGHT WITHIN REACH, FALL PRECAUTIONS IN PLACE, BED IS LOW POSISTION AND LOCKED.
--- NOTE | 2018-05-06 11:00 | NUR ---
PT APPEARS TO BE RESTING, EYES ARE CLOSED, RESPIRATIONS ARE EVEN AND UNLABORED. CALL LIGHT IS WITHIN REACH.
--- NOTE | 2018-05-06 11:15 | NUR ---
PT IS VOIDING COPIOUS AMOUNTS OF URINE, BED CHANGE X 2 DUE TO INCONTIENCE. NO FOUL ODOR NOTED.
--- NOTE | 2018-05-06 12:09 | NUR ---
PATIENT'S IV DC'D IN THE RIGHT ARM TIP INTACT, PULSE OX DC'D AND PATIENT READY TO D/C BACK TO [facility].
--- NOTE | 2018-05-06 12:40 | NUR ---
PT IS IN BED EATING LUNCH INDEPENDANTLY. NO COMPLAINTS OF BEING SOB,SATS ARE 91% ON 9 L HIGHFLOW N/C. PT DENIES ANY FURTHER NEEDS AT THIS TIME. CALL LIGHT WITHIN REACH.
--- NOTE | 2018-05-06 12:53 | NUR ---
TALKED WITH [facility] AND [facility] THIS AM REGARDING THE MASK FITTING AND WAS TOLD SHE WOULD BE COMING UP THIS AM WITH THE MASK AND FIT THE PT. AROUND 10 OR 11 SHE WAS HERE AND FITTED THE MASK AND TOOK TO [facility] TO SET THE BIPAP. CALLED EMS AND ARRANGED FOR A NON EMERGENT TRANSFER BACK TO [facility] AND THEY STATED THE WOULD BE HERE AT 1300
--- NOTE | 2018-05-06 13:20 | NUR ---
PT IS DISCHARGED BACK TO SNF FACILTY. VITALS ARE WNL, O2 IS ON 9 L HIGHFLOW N/C. [facility] TRANSFER SHEET POSISTIONED UNDER PT. PT TRANSFERED TO [facility] FOR TRANSFER BACK TO [facility] PER AMBULANCE.
--- NOTE | 2018-05-06 13:38 | NUR ---
patient report called to megan ramesh at [facility]
== END 2018-05-06 13:20 ==
LOC: MS 20:30
PROVIDERS: ADMIT Internal Medicine
PROC: 5A09357 Assistance with Respiratory Ventilation, Less than 24 Consecutive Hours, Continuous Positive Airway Pressure (ICD-10-PCS; principal; 2018-05-04)
DX: J96.21 Acute and chronic respiratory failure with hypoxia (principal); J96.22 Acute and chronic respiratory failure with hypercapnia; I50.32 Chronic diastolic (congestive) heart failure; J44.9 Chronic obstructive pulmonary disease, unspecified; E78.5 Hyperlipidemia, unspecified; E11.9 Type 2 diabetes mellitus without complications; K21.9 Gastro-esophageal reflux disease without esophagitis; F39 Unspecified mood [affective] disorder; F51.04 Psychophysiologic insomnia; E66.2 Morbid (severe) obesity with alveolar hypoventilation; G89.4 Chronic pain syndrome; Z66 Do not resuscitate; Z88.3 Allergy status to other anti-infective agents; Z88.5 Allergy status to narcotic agent; Z88.2 Allergy status to sulfonamides; Z79.84 Long term (current) use of oral hypoglycemic drugs; Z79.1 Long term (current) use of non-steroidal anti-inflammatories (NSAID); Z79.82 Long term (current) use of aspirin; Z79.891 Long term (current) use of opiate analgesic; Z79.51 Long term (current) use of inhaled steroids; Z79.899 Other long term (current) drug therapy; Z68.44 Body mass index [BMI] 60.0-69.9, adult
CPT/HCPCS: 36415; 71045; 80048; 83735; 84100; 85025; 94640; 94660; 94762; 96372; G0378; J1650

== ENCOUNTER 2020-02-04 13:10 | Emergency (ER) | payer MEDICARE, OTHER ==
[~2020-02-04] VITALS: Ht 152.4 cm; Wt 149.8 kg
--- OUTSIDE RECORDS SUMMARY | 2020-02-04 13:24 | XMS ---
PreManage Notification: MOE RICHARDSON Security Scout Events No recent Security Events currently on file CRITERIA MET - PDMP CARE PROVIDERS Name Unknown Care Home Facility Current PHONE: [phone] Emily Lo Footwear Production Machine Operator/Safe Deposit Box Rental Clerk 04/07/2014-Current PHONE: [phone] TINA SMITH Family Medicine: Sports Medicine 04/27/2018-Current PHONE: Unknown Evelyn has no Care Guidelines for this patient. E.D. VISIT COUNT (12 MO.) 1 [facility] TOTAL 1 NOTE: Visits indicate total known visits. ED/UCC VISIT TRACKING (12 MO.) 02/04/2020 13:10 [facility] [place] TYPE: Emergency COMPLAINT: - SOB,FEVER INPATIENT VISIT TRACKING (12 MO.) No inpatient visits to display in this time frame [email or web address]
== END 2020-02-04 18:04 | disposition home or self-care (01) ==
LOC: ED 13:10
DX: E66.2 Morbid (severe) obesity with alveolar hypoventilation (principal); I11.0 Hypertensive heart disease with heart failure; I50.9 Heart failure, unspecified; E11.9 Type 2 diabetes mellitus without complications; F25.9 Schizoaffective disorder, unspecified; F41.9 Anxiety disorder, unspecified; F43.10 Post-traumatic stress disorder, unspecified; G47.00 Insomnia, unspecified; F32.9 Major depressive disorder, single episode, unspecified; G47.30 Sleep apnea, unspecified; J44.9 Chronic obstructive pulmonary disease, unspecified; K21.9 Gastro-esophageal reflux disease without esophagitis; Z87.891 Personal history of nicotine dependence; Z88.2 Allergy status to sulfonamides; Z88.8 Allergy status to other drugs, medicaments and biological substances; Z88.5 Allergy status to narcotic agent; Z88.1 Allergy status to other antibiotic agents; Z91.048 Other nonmedicinal substance allergy status; Z79.899 Other long term (current) drug therapy; Z79.84 Long term (current) use of oral hypoglycemic drugs; Z79.82 Long term (current) use of aspirin
CPT/HCPCS: 36600; 51701; 71045; 80053; 81001; 82803; 83880; 84484; 85025; 94660; 99285-25; J2405

== ENCOUNTER 2020-04-06 14:37 | Emergency (ER) | payer MEDICARE, OTHER ==
[~2020-04-06] VITALS: Ht 152.4 cm; Wt 149.8 kg
--- OUTSIDE RECORDS SUMMARY | 2020-04-06 14:40 | XMS ---
PreManage Notification: MOE RICHARDSON Security Sales Lead Generator Events No recent Security Events currently on file CRITERIA MET - PDMP CARE PROVIDERS Name Unknown Snf Facility Current PHONE: [phone] Emily Lo Receiving Barn Custodian/Inspector Watch Parts 04/07/2014-Current PHONE: [phone] TINA SMITH Family Medicine: Sports Medicine 04/27/2018-Current PHONE: Unknown Evelyn has no Care Guidelines for this patient. E.D. VISIT COUNT (12 MO.) 2 [facility] TOTAL 2 NOTE: Visits indicate total known visits. ED/UCC VISIT TRACKING (12 MO.) 04/06/2020 14:38 [facility] [place] TYPE: Emergency COMPLAINT: - LEG PAIN NON INJURY 02/04/2020 13:10 [facility] [place] TYPE: Emergency COMPLAINT: - SOB,FEVER DIAGNOSES: - Allergy status to narcotic agent - Other mcc (current) drug therapy - Major depressive disorder, single episode, unspecified - Post-traumatic stress disorder, unspecified - Gastro-esophageal reflux disease without esophagitis - Sleep apnea, unspecified - Obesity, unspecified - Other nonmedicinal substance allergy status - Hypertensive heart disease with heart failure - Chronic obstructive pulmonary disease, unspecified - rodent exterminator (current) use of oral hypoglycemic drugs - detention (current) use of aspirin - Anxiety disorder, unspecified - Morbid (severe) obesity with alveolar hypoventilation - Allergy status to other drugs, medicaments and biological substances - Morbid (severe) obesity with alveolar hypoventilation - Personal history of nicotine dependence - Allergy status to sulfonamides - Heart failure, unspecified - Schizoaffective disorder, unspecified - Insomnia, unspecified - Allergy status to other antibiotic agents - Type 2 diabetes mellitus without complications INPATIENT VISIT TRACKING (12 MO.) No inpatient visits to display in this time frame [id number]
== END 2020-04-06 16:52 | disposition home or self-care (01) ==
LOC: ED 14:37
DX: R60.0 Localized edema (principal); I11.0 Hypertensive heart disease with heart failure; I50.9 Heart failure, unspecified; E11.9 Type 2 diabetes mellitus without complications; E78.5 Hyperlipidemia, unspecified; E66.01 Morbid (severe) obesity due to excess calories; G47.30 Sleep apnea, unspecified; J44.9 Chronic obstructive pulmonary disease, unspecified; K21.9 Gastro-esophageal reflux disease without esophagitis; J96.10 Chronic respiratory failure, unspecified whether with hypoxia or hypercapnia; Z87.891 Personal history of nicotine dependence; Z88.2 Allergy status to sulfonamides; Z91.048 Other nonmedicinal substance allergy status; Z88.8 Allergy status to other drugs, medicaments and biological substances; Z88.5 Allergy status to narcotic agent; Z88.1 Allergy status to other antibiotic agents; Z79.899 Other long term (current) drug therapy; Z79.84 Long term (current) use of oral hypoglycemic drugs
CPT/HCPCS: 93970; 99284-25

== ENCOUNTER 2021-05-21 18:57 | Emergency (ER) | payer MEDICARE, OTHER ==
[~2021-05-21] VITALS: Ht 152.4 cm; Wt 149.8 kg
--- OUTSIDE RECORDS SUMMARY | 2021-05-21 19:00 | XMS ---
PreManage Notification: MOE RICHARDSON Security Cartographic Aide Events No recent Security Events currently on file CRITERIA MET - ED - Positive COVID-19 Lab Result - [facility] - PDMP CARE PROVIDERS SANDHYA GANT Brilliandeer Lopper Current NILDA Delgado PHONE: [phone] BENITO TURNER Internal Medicine Current PHONE: Unknown Emily Lo Plumber/Stonework Supervisor 04/07/2021-Current PHONE: [phone] ROXANNA KNOX Nurse Practitioner Current PHONE: [phone] BARBY HE Nurse Practitioner: Family Current PHONE: Unknown DAVID CM Internal Medicine Current PHONE: [phone] MONALISA ORNELAS Nurse Practitioner Current PHONE: [phone] REYNALDO TRACEY I. Physician Space Systems Operations Manager Current PHONE: Unknown SARAH GALLARDO Family Medicine: Sports Medicine 04/27/2018-Current PHONE: Unknown NACHO Nurse Kristyn LARA PHONE: [phone] BETZAIDA [facility] Current PHONE: Unknown MIRANDA [facility] Current PHONE: [phone] LACEY CLAROS Physician Current PHONE: Unknown Evelyn has no Care Guidelines for this patient. E.DNina VISIT COUNT (12 MO.) 1 ORION Al TOTAL 1 NOTE: Visits indicate total known visits. ED/UCC VISIT TRACKING (12 MO.) 05/21/2021 18:57 [facility] [place] TYPE: Emergency COMPLAINT: - ALTERED MENTAL STATUS INPATIENT VISIT TRACKING (12 MO.) No inpatient visits to display in this time frame [id number]
== END 2021-05-21 23:00 | disposition home or self-care (01) ==
LOC: ED 18:57
DX: J44.9 Chronic obstructive pulmonary disease, unspecified (principal); I50.9 Heart failure, unspecified; I11.0 Hypertensive heart disease with heart failure; E11.9 Type 2 diabetes mellitus without complications; M19.90 Unspecified osteoarthritis, unspecified site; G47.00 Insomnia, unspecified; E78.5 Hyperlipidemia, unspecified; E66.01 Morbid (severe) obesity due to excess calories; G47.33 Obstructive sleep apnea (adult) (pediatric); K21.9 Gastro-esophageal reflux disease without esophagitis; Z87.891 Personal history of nicotine dependence; Z88.2 Allergy status to sulfonamides; Z88.8 Allergy status to other drugs, medicaments and biological substances; Z88.1 Allergy status to other antibiotic agents; Z91.048 Other nonmedicinal substance allergy status; Z79.899 Other long term (current) drug therapy; Z79.84 Long term (current) use of oral hypoglycemic drugs
CPT/HCPCS: 36415; 80048; 81001; 82803; 83880; 85025; 96374; 99285-25; J1940